=== PATIENT | female | born 1970 | race Asian ===

== ENCOUNTER 2024-01-05 13:09 | Outpatient (AMB) | payer OTHER, SELFPAY ==
--- NOTE | 2024-01-05 13:10 | MHC.PC.OV ---
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: No Allergies montelukast [From Singulair] Adverse Reaction (Mild, Verified 01/05/24 13:30) Drowsy Dust Allergy (Mild, Uncoded 01/05/24 13:30) Unknown Grass Allergy (Mild, Uncoded 01/05/24 13:30) Unknown latex Allergy (Mild, Uncoded 01/05/24 13:20) skin rash Mold Allergy (Mild, Uncoded 01/05/24 13:30) Unknown Medication List - Last Reconciled 01/05/24 by Henny Thorpe MD albuterol sulfate 90 mcg/actuation (Ventolin HFA) 2 puffs inhalation Q6H PRN ascorbic acid (vitamin C) mg PO calcium carbonate 500 mg PO BID cholecalciferol (vitamin D3) 25 mcg PO DAILY coenzyme Q10 (CoQ-10) 100 mg PO DAILY fluticasone propionate 44 mcg/actuation inhalation fluticasone propionate 44 mcg/actuation 2 puffs inhalation BID vitamin E mixed units PO Tobacco use date assessed: 01/05/24 Dental Screening Dental Screen Date: 01/05/24 Did you have a dental visit in the last 12 months?: Yes Did you have a dental problem in the last 6 months where you did not have access to dental care?: No Was dental information given to patient?: Patient has dentist HPI 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 Normal thyroid normal vitamin-D normal blood count with no anemia. 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 from [place] 2011 in [place] on flovent is going for a trip to [place] soon the visit mom. As for the asthma as she has a trip discussed about the bone density, the Pap smear done as well as her other medical problems. 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 1. Little interest or pleasure in doing things: not at all 2. Feeling down, depressed, or hopeless: not at all 3. Trouble falling or staying asleep, or sleeping too much: not at all 4. Feeling tired or having little energy: not at all 5. Poor appetite or overeating: not at all 6. Feeling bad about yourself - or that you are a failure or have let yourself or your family down: not at all 7. Trouble concentrating on things, such as reading the newspaper or watching television: not at all 8. Moving or speaking so slowly that other people could have noticed. Or the opposite - being so fidgety or restless that you have been moving around a lot more than usual: not at all 9. Thoughts that you would be better off or of hurting yourself in some way: not at all Total score: 0 Depression Screening Interpretation: Negative Depression Screening Done: Yes Source: Developed by Drs. Wesley Rico, Mily Edge, Temo Montenegro and colleagues, with an educational pa from [employer]. Thrive Questionnaire Date Thrive assessed: 01/05/24 I am a: Patient What is your living situation today?: I have a steady place to live Within the past 12 months, did the food you bought not last and you didn't have the money to get more?: Never true Within the past 12 months, did you worry whether your food would run out before you got money to buy more?: Never true Do you have trouble paying for medicines?: No Do you have trouble getting transportation to medical appointments?: No Do you have trouble paying your heating and electricity bill?: No Do you have trouble taking care of your child, family member or friend?: No Do you have trouble with day-to-day activities such as bathing, preparing meals, shopping, managing finances, etc.?: No Are you currently unemployed and looking for a job?: No Are you interested in more education?: No Please select the resources that you would like help with: None THRIVE Score: 0 AUDIT C Alcohol Use Questionnaire (AUDIT-C) 1. How often do you have a drink containing alcohol?: Monthly or less 2. How many drinks containing alcohol do you have on a typical day when you are drinking?: 1 or 2 3. How often do you have six or more drinks on one occasion?: Never Total Score: 1 JULIUS-7 AMB Questionnaire JULIUS-7 Date JULIUS - 7 assessed: 01/05/24 Feeling nervous, anxious, or on edge: 0 = Not at all Not being able to stop or control worryin = Not at all Worrying too much about different things: 0 = Not at all Trouble relaxin = Not at all Being so restless that it is hard to sit still: 0 = Not at all Becoming easily annoyed or irritable: 0 = Not at all Feeling afraid as if something awful might happen: 0 = Not at all Total JULIUS-7 score (0-4 normal; 5-9 mild; 10-14 moderate; 15-21 severe): 0 Source: Developed by Drs. Wesley Rico, Mliy Edge, Temo Montenegro and colleagues, with an educational pa from [employer]. Physical exam (Primary Care) Vital Signs: Last Vital Signs Pulse 67 01/05/24 13:12 BP 98/64 01/05/24 13:12 Pulse Ox 100 01/05/24 13:12 Oxygen Delivery Method Room Air 01/05/24 13:12 BMI result Body Mass Index 17.7 Tobacco/Smoking Status: Tobacco use Status Tobacco use date assessed 01/05/24 01/05/24 13:12 Patient Tobacco Use Status Former Tobacco user 01/05/24 13:26 PHQ-9: PHQ-9 Score PHQ-9: Total score 0 01/05/24 13:12 Depression Screening Interpretation: Negative Thrive Assessment: Date of Thrive Assessment Date Thrive assessed 01/05/24 01/05/24 13:12 Const General: alert; No acute distress Eyes Conjunctivae: conjunctivae normal Resp Auscultation: clear to auscultation bilaterally Cardio Rate: regular rate Rhythm: regular rhythm GI Inspection: Yes normal to inspection Extrem General: Yes normal to inspection and No edema Assessment and Plan Assessment & Plan (1) Steatohepatitis, non-alcoholic: Comment: biopsy 2019 Code(s): K75.81 - Nonalcoholic steatohepatitis (DELATORRE) Plan: Low-fat diet (2) Asthma: Code(s): J45.909 - Unspecified asthma, uncomplicated Plan: continue with inhalers (3) Left renal stone: Code(s): N20.0 - Calculus of kidney Plan: Increase oral fluids (4) Migraine: Code(s): G43.909 - Migraine, unspecified, not intractable, without status migrainosus Plan: Keep adequate hydration eat healthy and keep active and have adequate sleep (5) Uterine fibroid: Code(s): D25.9 - Leiomyoma of uterus, unspecified Plan: Stable (6) Osteoporosis: Code(s): M81.0 - Age-related osteoporosis without current pathological fracture Plan: up to date with bone density 2020 Coding Level of Care Code New Pt Level 4 (18708) Diagnoses Steatohepatitis, non-alcoholic K75.81 Asthma J45.909 Left renal stone N20.0 Migraine G43.909 Uterine fibroid D25.9 Osteoporosis M81.0
[2024-01-05 13:12] VITALS: BP 98/64; PULSE 67; O2SAT 100; BMI 17.7
== END 2024-01-05 14:09 | disposition home or self-care (01) ==
PROVIDERS: PCP Internal Medicine; Visit Provider Internal Medicine
DX: K75.81 Nonalcoholic steatohepatitis (NASH) (principal); J45.909 Unspecified asthma, uncomplicated; N20.0 Calculus of kidney; G43.909 Migraine, unspecified, not intractable, without status migrainosus; D25.9 Leiomyoma of uterus, unspecified; M81.0 Age-related osteoporosis without current pathological fracture
CPT/HCPCS: 99204

== ENCOUNTER 2024-05-24 13:50 | Outpatient (AMB) | payer OTHER, SELFPAY ==
[2024-05-24 13:54] VITALS: BP 90/58; PULSE 67; O2SAT 97; BMI 17.9
--- NOTE | 2024-05-24 13:54 | MHC.PC.OV ---
Vital Signs 05/24/24 13:54 Height 5 ft 3 in Weight 101 lb 0.2 oz BMI 17.9 BP 90/58 L Blood Pressure Location Lt brachial Position Sitting Pulse 67 Pulse Source Pulse Oximeter Pulse Oximetry (%) 97 Oxygen Delivery Method Room Air Intake Visit Reasons: ANNUAL Intake Note: Patient is here today for a physical. Medical Coding Specialist Required: No Allergies NSAIDS (Non-Steroidal Anti-Inflamma Adverse Reaction (Intermediate, Unverified 05/24/24 14:20) leg swelling montelukast [From Singulair] Adverse Reaction (Mild, Verified 05/24/24 13:55) Drowsy Dust Allergy (Mild, Uncoded 05/24/24 13:55) Unknown Grass Allergy (Mild, Uncoded 05/24/24 13:55) Unknown latex Allergy (Mild, Uncoded 05/24/24 13:55) skin rash Mold Allergy (Mild, Uncoded 05/24/24 13:55) Unknown Medication List - Last Reconciled 05/24/24 by Henny Thorpe MD albuterol sulfate 90 mcg/actuation (Ventolin HFA) 2 puffs inhalation Q6H PRN ascorbic acid (vitamin C) mg PO biotin 1 mg PO DAILY calcium carbonate 500 mg PO BID cholecalciferol (vitamin D3) 25 mcg PO DAILY coenzyme Q10 (CoQ-10) 100 mg PO DAILY fluticasone propionate 44 mcg/actuation inhalation fluticasone propionate 44 mcg/actuation 2 puffs inhalation BID vitamin E mixed units PO Tobacco use date assessed: 05/24/24 Dental Screening Dental Screen Date: 05/24/24 Did you have a dental visit in the last 12 months?: Yes Did you have a dental problem in the last 6 months where you did not have access to dental care?: No Was dental information given to patient?: Patient has dentist HPI ANNUAL HPI Details 53-year-old underweight female with a history of asthma hepatic steatosis left nephrolithiasis migraine uterine fibroid and osteoporosis was taking tylenol-, coming in for physical exam patient was last seen in December 2023. Cologuard is up-to-date, reminded about mammogram this year. And discussed about bone density. STEELE - vertiginous migraine- PFSH Medical History (Updated 05/24/24 @ 14:25 by Henny Thorpe MD) Colon cancer screening Surgical History (Updated 01/05/24 @ 13:47 by Henny Thorpe MD) Uterine polyp Family History (Updated 05/24/24 @ 14:18 by Henny Thorpe MD) Maternal Grandmother Heart problem Paternal Aunt Breast cancer Maternal Aunt Breast cancer Pancreatic cancer Maternal Uncle Colon cancer Sister Schizophrenia Drug abuse Social History (Updated 05/24/24 @ 14:19 by Henny Thorpe MD) Housing: House Alcohol intake: current Comment: 1 Q 2 months 1 glass Patient Tobacco Use Status: Former Tobacco user Years Smoked: teen years service: No Current occupational status: employed 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 1. Little interest or pleasure in doing things: not at all 2. Feeling down, depressed, or hopeless: not at all 3. Trouble falling or staying asleep, or sleeping too much: not at all 4. Feeling tired or having little energy: not at all 5. Poor appetite or overeating: not at all 6. Feeling bad about yourself - or that you are a failure or have let yourself or your family down: not at all 7. Trouble concentrating on things, such as reading the newspaper or watching television: not at all 8. Moving or speaking so slowly that other people could have noticed. Or the opposite - being so fidgety or restless that you have been moving around a lot more than usual: not at all 9. Thoughts that you would be better off or of hurting yourself in some way: not at all Total score: 0 Depression Screening Interpretation: Negative Depression Screening Done: Yes Source: Developed by Drs. Wesley Rico, Mily Edge, Temo Montenegro and colleagues, with an educational pa from [employer]. Thrive Questionnaire Date Thrive assessed: 01/05/24 I am a: Patient What is your living situation today?: I have a steady place to live Within the past 12 months, did the food you bought not last and you didn't have the money to get more?: Never true Within the past 12 months, did you worry whether your food would run out before you got money to buy more?: Never true Do you have trouble paying for medicines?: No Do you have trouble getting transportation to medical appointments?: No Do you have trouble paying your heating and electricity bill?: No Do you have trouble taking care of your child, family member or friend?: No Do you have trouble with day-to-day activities such as bathing, preparing meals, shopping, managing finances, etc.?: No Are you currently unemployed and looking for a job?: No Are you interested in more education?: No Please select the resources that you would like help with: None Currently or been in a relationship where the following occur: No concerns reported THRIVE Score: 0 AUDIT C Alcohol Use Questionnaire (AUDIT-C) 1. How often do you have a drink containing alcohol?: Monthly or less 2. How many drinks containing alcohol do you have on a typical day when you are drinking?: 1 or 2 3. How often do you have six or more drinks on one occasion?: Never Total Score: 1 JULIUS-7 AMB Questionnaire JULIUS-7 Date JULIUS - 7 assessed: 05/24/24 Feeling nervous, anxious, or on edge: 0 = Not at all Not being able to stop or control worryin = Not at all Worrying too much about different things: 0 = Not at all Trouble relaxin = Not at all Being so restless that it is hard to sit still: 0 = Not at all Becoming easily annoyed or irritable: 0 = Not at all Feeling afraid as if something awful might happen: 0 = Not at all Total JULIUS-7 score (0-4 normal; 5-9 mild; 10-14 moderate; 15-21 severe): 0 Source: Developed by Drs. Wesley Rico, Mily Edge, Temo Montenegor and colleagues, with an educational pa from [employer]. Review of Systems Const Denies poor appetite and Denies weakness Eyes Denies no additional complaints ENT Reports Normal hearing present, Denies dizziness, Denies nasal congestion, Denies tinnitus and Denies sore throat Card Denies chest pain, Denies syncope, Denies rapid heart rate and Denies dyspnea Resp Denies cough and Denies dyspnea GI Denies change in stool character, Reports constipation, Denies diarrhea, Denies nausea and Denies vomiting Denies urinary frequency, Denies difficulty voiding and Denies dysuria Neuro Reports Normal hearing present, Denies confusion, Denies dizziness, Denies syncope and Denies weakness Psych Denies confusion Physical exam (Primary Care) Vital Signs: Last Vital Signs Pulse 67 05/24/24 13:54 BP 90/58 L 05/24/24 13:54 Pulse Ox 97 05/24/24 13:54 Oxygen Delivery Method Room Air 05/24/24 13:54 BMI result Body Mass Index 17.9 Tobacco/Smoking Status: Tobacco use Status Tobacco use date assessed 05/24/24 05/24/24 14:03 Patient Tobacco Use Status Former Tobacco user 05/24/24 14:03 PHQ-9: PHQ-9 Score PHQ-9: Total score 0 05/24/24 14:03 Depression Screening Interpretation: Negative Thrive Assessment: Date of Thrive Assessment Date Thrive assessed 01/05/24 05/24/24 14:03 Currently or been in a relationship where the following occur: No concerns reported Const General: No confusion Orientation/consciousness: No confusion HENMT Head: Yes normocephalic Ears: external ears normal and TM's normal bilaterally Face and sinus: Yes normal facial exam Mouth: moist mucous membranes Throat: Yes tonsils normal Eyes Conjunctivae: conjunctivae normal Pupils: Equal, round and reactive pupils present and Pupil accommodation reflex normal Direct Ophthalmoscopy: normal light reflex Neck Neck: No lymphadenopathy Thyroid: Thyroid normal Chest Chest palpation & inspection: normal inspection of the chest Resp Effort & Inspection: normal respiratory effort and no audible wheezes Auscultation: clear to auscultation bilaterally, no crackles, no wheezes and lung sounds not diminished Cardio Rate: regular rate Rhythm: regular rhythm Peripheral pulses: radial pulses present and dorsalis pedis present GI Palpation (GI): no masses Auscultation: normal bowel sounds and normoactive bowel sounds Rectal Exam - Female: deferred Skin General skin exam: no rashes or lesions noted Rashes: no rashes Neuro General: No confusion Cranial nerves: Yes Equal, round and reactive pupils present and Yes Normal hearing present Cognition (Neuro): normal cognition Gait exam (Neuro): Normal gait present Motor exam (neuro): 5/5 motor strength present throughout Deep tendon reflexes (DTR's): Right brachioradialis reflex intensity grade: 2+, Left brachioradialis reflex intensity grade: 2+, Right patellar reflex intensity grade: 2+ and Left patellar reflex intensity grade: 2+ Extrem General: No edema Assessment and Plan Assessment & Plan (1) Chalazion: Code(s): H00.19 - Chalazion unspecified eye, unspecified eyelid (2) Annual physical exam: Code(s): Z00.00 - Encounter for general adult medical examination without abnormal findings (3) Steatohepatitis, non-alcoholic: Comment: biopsy 2019 Code(s): K75.81 - Nonalcoholic steatohepatitis (DELATORRE) Plan: Patient is advised to eat healthy and keep well hydrated. Patient also advised to follow up with Gastroenterology (4) Osteoporosis: Code(s): M81.0 - Age-related osteoporosis without current pathological fracture Plan: Patient was recommended to have a follow-up bone density (5) Left renal stone: Code(s): N20.0 - Calculus of kidney Plan: Keep well hydrated (6) Asthma: Code(s): J45.909 - Unspecified asthma, uncomplicated Plan: Continue with albuterol inhaler and Flovent. Reminded about rinsing mouth after using the inhaler. (7) Migraine: Code(s): G43.909 - Migraine, unspecified, not intractable, without status migrainosus Plan: Patient is advised to eat healthy, keep well hydrated, keep active and have adequate sleep. (8) Chalazion left eye, unspecified eyelid: Comment: Dr. Holloway Code(s): H00.16 - Chalazion left eye, unspecified eyelid (9) Constipation: Code(s): K59.00 - Constipation, unspecified Orders: Orders Complete Blood Count Auto Diff Today M81.0 - Age-related osteoporosis without current pathological fracture Free T4 (Free Thyroxine) Today M81.0 - Age-related osteoporosis without current pathological fracture Thyroid Stimulating Hormone Today M81.0 - Age-related osteoporosis without current pathological fracture Lipid Panel Today E78.00 - Pure hypercholesterolemia, unspecified, M81.0 - Age-related osteoporosis without current pathological fracture Vitamin B12 and Folate Today M81.0 - Age-related osteoporosis without current pathological fracture Vitamin D 25-OH Total Today M81.0 - Age-related osteoporosis without current pathological fracture Comprehensive Met. Panel Today M81.0 - Age-related osteoporosis without current pathological fracture Ferritin Today M81.0 - Age-related osteoporosis without current pathological fracture Medications: New rutin 500 mg PO DAILY 30 tabs 0RF K59.00 - Constipation, unspecified albuterol sulfate 90 mcg/actuation (Ventolin HFA) 2 puffs inhalation Q6H PRN 8.5 grams 0RF shortness of breath or wheezing M81.0 - Age-related osteoporosis without current pathological fracture Coding Level of Care Code Est Pt Prev Care 40-64y(42875) Diagnoses Chalazion H00.19 Annual physical exam Z00.00 Steatohepatitis, non-alcoholic K75.81 Osteoporosis M81.0 Left renal stone N20.0 Asthma J45.909 Migraine G43.909 Chalazion left eye, unspecified eyelid H00.16 Constipation K59.00
== END 2024-05-24 14:50 | disposition home or self-care (01) ==
PROVIDERS: PCP Internal Medicine; Visit Provider Internal Medicine
DX: H00.19 Chalazion unspecified eye, unspecified eyelid (principal); Z00.00 Encounter for general adult medical examination without abnormal findings; K75.81 Nonalcoholic steatohepatitis (NASH); M81.0 Age-related osteoporosis without current pathological fracture; N20.0 Calculus of kidney; J45.909 Unspecified asthma, uncomplicated; G43.909 Migraine, unspecified, not intractable, without status migrainosus; H00.16 Chalazion left eye, unspecified eyelid; K59.00 Constipation, unspecified
CPT/HCPCS: 99396

== ENCOUNTER 2025-03-21 09:49 | Outpatient (AMB) | payer OTHER, SELFPAY ==
--- NOTE | 2025-03-21 09:49 | A.OFFPC_ITS ---
Intake Visit Reasons: hepatic [phone] Allergies NSAIDS (Non-Steroidal Anti-Inflamma Adverse Reaction (Intermediate, Verified 03/21/25 09:50) leg swelling montelukast [From Singulair] Adverse Reaction (Mild, Verified 03/21/25 09:50) Drowsy Dust Allergy (Mild, Uncoded 03/21/25 09:50) Unknown Grass Allergy (Mild, Uncoded 03/21/25 09:50) Unknown latex Allergy (Mild, Uncoded 03/21/25 09:50) skin rash Mold Allergy (Mild, Uncoded 03/21/25 09:50) Unknown Tobacco use date assessed: 05/24/24 Dental Screening Dental Screen Date: 03/21/25 Did you have a dental visit in the last 12 months?: Yes Did you have a dental problem in the last 6 months where you did not have access to dental care?: No Was dental information given to patient?: Patient has dentist [facility] Medical History (Updated 03/21/25 @ 10:29 by Henny Thorpe MD) Colon cancer screening Surgical History (Updated 01/05/24 @ 13:47 by Henny Thorpe MD) Uterine polyp Family History (Updated 05/24/24 @ 14:18 by Henny Thorpe MD) Maternal Grandmother Heart problem Paternal Aunt Breast cancer Maternal Aunt Breast cancer Pancreatic cancer Maternal Uncle Colon cancer Sister Schizophrenia Drug abuse Social History (Updated 05/24/24 @ 14:19 by Henny Thorpe MD) Housing: House Alcohol intake: current Comment: 1 Q 2 months 1 glass Patient Tobacco Use Status: Former Tobacco user Tobacco use type: Cigarette Years Smoked: teen years e-Cigarette/Vaping Use: Never Used Second Hand Smoke Exposure: No service: No Current occupational status: employed 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 1. Little interest or pleasure in doing things: not at all 2. Feeling down, depressed, or hopeless: not at all 3. Trouble falling or staying asleep, or sleeping too much: not at all 4. Feeling tired or having little energy: not at all 5. Poor appetite or overeating: not at all 6. Feeling bad about yourself - or that you are a failure or have let yourself or your family down: not at all 7. Trouble concentrating on things, such as reading the newspaper or watching television: not at all 8. Moving or speaking so slowly that other people could have noticed. Or the opposite - being so fidgety or restless that you have been moving around a lot more than usual: not at all 9. Thoughts that you would be better off or of hurting yourself in some way: not at all Total score: 0 Depression Screening Interpretation: Negative Depression Screening Done: Yes Source: Developed by Drs. Wesley Rico, Mily Edge, Temo Montenegro and colleagues, with an educational pa from [employer]. Thrive Questionnaire Date Thrive assessed: 03/21/25 I am a: Patient What is your living situation today?: I have a steady place to live Within the past 12 months, did the food you bought not last and you didn't have the money to get more?: Never true Within the past 12 months, did you worry whether your food would run out before you got money to buy more?: Never true Do you have trouble paying for medicines?: No Do you have trouble getting transportation to medical appointments?: No Do you have trouble paying your heating and electricity bill?: No Do you have trouble taking care of your child, family member or friend?: No Do you have trouble with day-to-day activities such as bathing, preparing meals, shopping, managing finances, etc.?: No Are you currently unemployed and looking for a job?: No Are you interested in more education?: No Please select the resources that you would like help with: None Currently or been in a relationship where the following occur: No concerns reported THRIVE Score: 0 AUDIT C Alcohol Use Questionnaire (AUDIT-C) 1. How often do you have a drink containing alcohol?: Monthly or less 2. How many drinks containing alcohol do you have on a typical day when you are drinking?: 1 or 2 3. How often do you have six or more drinks on one occasion?: Never Total Score: 1 JULIUS-7 AMB Questionnaire JULIUS-7 Date JULIUS - 7 assessed: 03/21/25 Feeling nervous, anxious, or on edge: 1 = Several days (Mom just admitted into hospital yesterday making her a little anxious. Overall is okay. ) Not being able to stop or control worryin = Not at all Worrying too much about different things: 0 = Not at all Trouble relaxin = Not at all Being so restless that it is hard to sit still: 0 = Not at all Becoming easily annoyed or irritable: 0 = Not at all Feeling afraid as if something awful might happen: 0 = Not at all Total JULIUS-7 score (0-4 normal; 5-9 mild; 10-14 moderate; 15-21 severe): 1 Source: Developed by Drs. Wesley Rico, Mily Edge, Temo Montenegro and colleagues, with an educational pa from [employer]. Physical exam (Primary Care) Tobacco/Smoking Status: Tobacco use Status Tobacco use date assessed 05/24/24 03/21/25 09:51 Patient Tobacco Use Status Former Tobacco user 03/21/25 09:51 Tobacco use type Cigarette 03/21/25 09:51 e-Cigarette/Vaping Use Never Used 03/21/25 09:51 PHQ-9: PHQ-9 Score PHQ-9: Total score 0 03/21/25 09:51 Depression Screening Interpretation: Negative Thrive Assessment: Date of Thrive Assessment Date Thrive assessed 03/21/25 03/21/25 09:51 Currently or been in a relationship where the following occur: No concerns reported Telehealth Telehealth Telehealth Platform: Other (please specify) (Iphone) Location of provider rendering services: practice address Location of patient: address on file Patient Identification confirmed using: Name, : Yes Telehealth method: video Patient verbally consented to treatment: Yes Patient verbally consented to billing insurance company: Yes Patient informed of any privacy concerns related to visit: Yes Minutes spent on Phone/Video with Pt.: 25 Coding Level of Care Code Tele Est Pt Level 4 (29097) Diagnoses TSH elevation R79.89 LFT elevation R79.89 Asthma J45.909 Steatohepatitis, non-alcoholic K75.81 Constipation K59.00 Generalized anxiety disorder F41.1 Assessment & Plan Assessment & Plan (1) TSH elevation: Code(s): R79.89 - Other specified abnormal findings of blood chemistry Category: Medical Plan: Blood Work done normal (2) LFT elevation: Code(s): R79.89 - Other specified abnormal findings of blood chemistry Category: Medical Plan: Patient is advised to get an ultrasound of the liver with hepatitis profile (3) Asthma: Code(s): J45.909 - Unspecified asthma, uncomplicated Category: Medical Plan: Continuing with albuterol inhaler as needed (4) Steatohepatitis, non-alcoholic: Comment: biopsy 2019 Code(s): K75.81 - Nonalcoholic steatohepatitis ([place]ATORRE) Category: Medical Plan: Low-fat diet and exercise (5) Constipation: Code(s): K59.00 - Constipation, unspecified Category: Medical Plan: Three rules for constipation 1. Diet need to have a high fiber diet less of meat 2. Increase oral fluids 3. Exercise (6) Generalized anxiety disorder: Code(s): F41.1 - Generalized anxiety disorder Category: Medical Plan: Referral done Plan History of Present Illness The patient is a 54-year-old female presenting for a follow-up visit to address multiple chronic health conditions, including nonalcoholic steatohepatitis, irritable bowel syndrome, left nephrolithiasis, asthma, and osteoporosis. She reported recently elevated liver enzymes and a mildly elevated TSH as per blood tests conducted in May 2024. Her lipid profile indicated hyperlipidemia. Her vitamin B12 and folic acid levels were abnormally high, leading to the cessation of related supplements. The patient experiences occasional constipation, exacerbated by dietary factors and reduced physical activity. She expressed concerns regarding potential shingles susceptibility and is interested in verification of past varicella exposure and measles immunization status. A discussion regarding the pursuit of culturally competent psychotherapy was initiated, given her stressful family dynamics. Review of Systems - Gastrointestinal: Reports constipation; denies blood in stool. - Respiratory: Denies recent asthma exacerbations; occasional use of albuterol noted. - Musculoskeletal: Reports osteoporosis; denies fractures. - Endocrine: Denies new symptoms of thyroid dysfunction. - Psychological: Reports stress related to family issues. Plan Management for nonalcoholic steatohepatitis will include a liver ultrasound and hepatitis profile. The patient should continue lifestyle modifications for hyperlipidemia and monitor TSH levels. Recommendations were provided for dietary management and supplementation to address constipation. A varicella antibody test will be pursued, and a referral for culturally competent therapy will be coordinated. A follow-up visit is scheduled in three months. Patient was informed and verbally consented to the use of an ambient scribe for clinic note documentation during this visit. Discussion Notes I explained to the patient the importance of monitoring elevated liver enzymes and the plan to obtain an ultrasound and hepatitis profile. We discussed the rationale behind stopping vitamin B12 and folic acid supplements due to elevated levels, and the choice to monitor TSH given the mild elevation. I advised the patient on managing constipation through dietary means and potential use of psyllium, which she acknowledged. We discussed the vaccine guideline implications for herpes zoster, determining the need for a varicella antibody test. Finally, we explored therapy options, emphasizing the importance of cultural sensitivity in mental health support, and I committed to easing the referral process for her preferred therapy framework. Patient Instructions - Follow a low-fat diet and engage in regular exercise. - Discontinue Vitamin B12 and folic acid supplements. - Arrange for a liver ultrasound and hepatitis profile. - Increase water intake and consider psyllium supplements for constipation. - Await mail with updated blood work request. - Monitor stress levels and contact for a therapist referral if desired. - Follow up in three months. Orders: Orders Hepatitis B,C Profile Today R79.89 - Other specified abnormal findings of blood chemistry Rubella IgG Antibody Today Z02.0 - Encounter [facility] Varicella IgG Antibody Today Z02.0 - Encounter for examination for admission to [facility] Mumps Virus IgG Antibody Today Z02.0 - Encounter for examination for admission to [facility] Rubeola IgG (Measles) Today Z02.0 - Encounter for examination for admission to [facility] Referrals Psychiatry Referral F41.1 - Generalized anxiety disorder
== END 2025-03-21 14:36 | disposition home or self-care (01) ==
LOC: HO.HMCH 09:49
PROVIDERS: PCP Internal Medicine; Visit Provider Internal Medicine
DX: R79.89 Other specified abnormal findings of blood chemistry (principal); J45.909 Unspecified asthma, uncomplicated; K75.81 Nonalcoholic steatohepatitis (NASH); K59.00 Constipation, unspecified; F41.1 Generalized anxiety disorder

== ENCOUNTER → 2025-03-21 09:49 | Outpatient (BNVA) | payer OTHER, SELFPAY | PROVIDERS: PCP Internal Medicine; Visit Provider Internal Medicine | DX: Z13.89 Encounter for screening for other disorder (principal) ==

== ENCOUNTER 2025-05-29 13:12 | Outpatient (AMB) | payer OTHER, SELFPAY ==
[2025-05-29 13:23] VITALS: BP 100/64; PULSE 69; RESP 18; TEMP 36.3; O2SAT 98; BMI 17.8
--- NOTE | 2025-05-29 13:23 | MHC.PC.OV ---
Vital Signs 05/29/25 13:23 Height 5 ft 3 in Weight 100 lb 8 oz BMI 17.8 BP 100/64 Blood Pressure Location Lt brachial Position Sitting Respiration 18 Pulse 69 Pulse Source Pulse Oximeter Temp 97.3 F Temp Source Temporal Artery Scan Pulse Oximetry (%) 98 Oxygen Delivery Method Room Air Intake Visit Reasons: Annual exam Accompanied by: Spouse Allergies NSAIDS (Non-Steroidal Anti-Inflamma Adverse Reaction (Intermediate, Verified 05/29/25 13:26) leg swelling montelukast (From Singulair) Adverse Reaction (Mild, Verified 05/29/25 13:26) Drowsy Dust Allergy (Mild, Uncoded 05/29/25 13:26) Unknown Grass Allergy (Mild, Uncoded 05/29/25 13:26) Unknown latex Allergy (Mild, Uncoded 05/29/25 13:26) skin rash Mold Allergy (Mild, Uncoded 05/29/25 13:26) Unknown Medication List - Last Reconciled 05/29/25 by Henny Thorpe MD albuterol sulfate 90 mcg/actuation (Ventolin HFA) 2 puffs inhalation Q6H PRN ascorbic acid (vitamin C) mg PO budesonide 90 mcg/actuation (Pulmicort Flexhaler) 1 inh inhalation .QD calcium carbonate 500 mg PO BID cholecalciferol (vitamin D3) 25 mcg PO DAILY coenzyme Q10 (CoQ-10) 100 mg PO DAILY multivitamin 1 tab PO DAILY rutin 500 mg PO DAILY PRN vitamin E mixed units PO .3x a week Tobacco use date assessed: 05/29/25 Dental Screening Dental Screen Date: 05/29/25 Did you have a dental visit in the last 12 months?: Yes Did you have a dental problem in the last 6 months where you did not have access to dental care?: No Was dental information given to patient?: Patient has dentist HPI Annual exam HPI Details vertigo, occ nausea, MAy migraine and had a vomiting. leg crmps PFSH Medical History Colon cancer screening Surgical History Uterine polyp Family History (Updated 05/29/25 @ 13:54 by Henny Thorpe MD) Maternal Grandmother Heart problem Paternal Aunt Breast cancer Maternal Aunt Breast cancer Pancreatic cancer Maternal Uncle Colon cancer Sister Schizophrenia Drug abuse Other Heart attack Social History Housing: House Alcohol intake: current Comment: 1 Q 2 months 1 glass Patient Tobacco Use Status: Former Tobacco user Tobacco use type: Cigarette Years Smoked: teen years e-Cigarette/Vaping Use: Never Used Second Hand Smoke Exposure: No service: No Current occupational status: employed 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 1. Little interest or pleasure in doing things: not at all 2. Feeling down, depressed, or hopeless: not at all 3. Trouble falling or staying asleep, or sleeping too much: not at all 4. Feeling tired or having little energy: several days 5. Poor appetite or overeating: not at all 6. Feeling bad about yourself - or that you are a failure or have let yourself or your family down: not at all 7. Trouble concentrating on things, such as reading the newspaper or watching television: not at all 8. Moving or speaking so slowly that other people could have noticed. Or the opposite - being so fidgety or restless that you have been moving around a lot more than usual: not at all 9. Thoughts that you would be better off or of hurting yourself in some way: not at all Total score: 1 Source: Developed by Drs. Wesley Rico, Mily Edge, Temo Montenegro and colleagues, with an educational pa from [employer]. Thrive Questionnaire Date Thrive assessed: 03/21/25 I am a: Patient What is your living situation today?: I have a steady place to live Within the past 12 months, did the food you bought not last and you didn't have the money to get more?: Never true Within the past 12 months, did you worry whether your food would run out before you got money to buy more?: Never true Do you have trouble paying for medicines?: I choose not to answer this question Do you have trouble getting transportation to medical appointments?: I choose not to answer this question Do you have trouble paying your heating and electricity bill?: No Do you have trouble taking care of your child, family member or friend?: No Do you have trouble with day-to-day activities such as bathing, preparing meals, shopping, managing finances, etc.?: No Are you currently unemployed and looking for a job?: I choose not to answer this question Are you interested in more education?: No Please select the resources that you would like help with: None Currently or been in a relationship where the following occur: No concerns reported THRIVE Score: 0 AUDIT C Alcohol Use Questionnaire (AUDIT-C) 1. How often do you have a drink containing alcohol?: Monthly or less 2. How many drinks containing alcohol do you have on a typical day when you are drinking?: 1 or 2 3. How often do you have six or more drinks on one occasion?: Never Total Score: 1 JULIUS-7 AMB Questionnaire JULIUS-7 Date JULIUS - 7 assessed: 03/21/25 Feeling nervous, anxious, or on edge: 1 = Several days Not being able to stop or control worryin = Not at all Worrying too much about different things: 0 = Not at all Trouble relaxin = Not at all Being so restless that it is hard to sit still: 0 = Not at all Becoming easily annoyed or irritable: 0 = Not at all Feeling afraid as if something awful might happen: 0 = Not at all Total JULIUS-7 score (0-4 normal; 5-9 mild; 10-14 moderate; 15-21 severe): 1 Source: Developed by Drs. Wesley Rico, Mily Edge, Temo Montenegro and colleagues, with an educational pa from [employer]. Review of Systems Const Denies poor appetite and Denies weakness Eyes Denies no additional complaints ENT Reports Normal hearing present, Denies dizziness, Denies nasal congestion, Denies tinnitus and Denies sore throat Card Denies chest pain, Denies syncope, Denies rapid heart rate and Denies dyspnea Resp Denies cough and Denies dyspnea GI Denies change in stool character, Reports constipation, Denies diarrhea, Denies nausea and Denies vomiting Denies urinary frequency, Denies difficulty voiding and Denies dysuria Neuro Reports Normal hearing present, Denies confusion, Denies dizziness, Denies syncope and Denies weakness Psych Denies confusion Physical exam (Primary Care) Vital Signs: Last Vital Signs Temp 97.3 F 05/29/25 13:23 Pulse 69 05/29/25 13:23 Resp 18 05/29/25 13:23 BP 100/64 05/29/25 13:23 Pulse Ox 98 05/29/25 13:23 Oxygen Delivery Method Room Air 05/29/25 13:23 BMI result Body Mass Index 17.8 Tobacco/Smoking Status: Tobacco use Status Tobacco use date assessed 05/29/25 05/29/25 13:28 Patient Tobacco Use Status Former Tobacco user 05/29/25 13:28 Tobacco use type Cigarette 05/29/25 13:28 e-Cigarette/Vaping Use Never Used 05/29/25 13:28 PHQ-9: PHQ-9 Score PHQ-9: Total score 1 05/29/25 13:37 Thrive Assessment: Date of Thrive Assessment Date Thrive assessed 03/21/25 05/29/25 13:28 Currently or been in a relationship where the following occur: No concerns reported Const General: No confusion Orientation/consciousness: No confusion HENMT Head: Yes normocephalic Ears: external ears normal and TM's normal bilaterally Face and sinus: Yes normal facial exam Mouth: moist mucous membranes Throat: Yes tonsils normal Eyes Conjunctivae: conjunctivae normal Pupils: Equal, round and reactive pupils present and Pupil accommodation reflex normal Direct Ophthalmoscopy: normal light reflex Neck Neck: No lymphadenopathy Thyroid: Thyroid normal Chest Chest palpation & inspection: normal inspection of the chest Resp Effort & Inspection: normal respiratory effort and no audible wheezes Auscultation: clear to auscultation bilaterally, no crackles, no wheezes and lung sounds not diminished Cardio Rate: regular rate Rhythm: regular rhythm Peripheral pulses: radial pulses present and dorsalis pedis present GI Palpation (GI): no masses Auscultation: normal bowel sounds and normoactive bowel sounds Rectal Exam - Female: deferred Skin General skin exam: no rashes or lesions noted Rashes: no rashes Neuro General: No confusion Cranial nerves: Yes Equal, round and reactive pupils present and Yes Normal hearing present Cognition (Neuro): normal cognition Gait exam (Neuro): Normal gait present Motor exam (neuro): 5/5 motor strength present throughout Deep tendon reflexes (DTR's): Right brachioradialis reflex intensity grade: 2+, Left brachioradialis reflex intensity grade: 2+, Right patellar reflex intensity grade: 2+ and Left patellar reflex intensity grade: 2+ Extrem General: No edema Coding Level of Care Code Est Pt Prev Care 40-64y(72316) Diagnoses Annual physical exam Z00. Asthma J45.909 Breast cancer screening by mammogram Z. Constipation K59.00 Steatohepatitis, non-alcoholic K75.81 Osteoporosis M81.0 TSH elevation R79.89 Generalized anxiety disorder F41.1 Assessment & Plan Assessment & Plan (1) Annual physical exam: Code(s): Z00.00 - Encounter for general adult medical examination without abnormal findings Category: Medical Plan: Patient is advised to eat healthy, keep well hydrated, keep active and have adequate sleep. (2) Asthma: Code(s): J45.909 - Unspecified asthma, uncomplicated Category: Medical Plan: Patient on albuterol inhaler as well as Pulmicort. Advised to rinse mouth after using (3) Breast cancer screening by mammogram: Code(s): Z. - Encounter for screening mammogram for malignant neoplasm of breast Category: Medical Plan: Patient is reminded about mammogram (4) Constipation: Code(s): K59.00 - Constipation, unspecified Category: Medical Plan: Three rules for constipation 1. Diet need to have a high fiber diet less of meat 2. Increase oral fluids 3. Exercise (5) Steatohepatitis, non-alcoholic: Comment: biopsy 2019 Code(s): K75.81 - Nonalcoholic steatohepatitis (DELATORRE) Category: Medical Plan: Low-fat diet and exercise (6) Osteoporosis: Code(s): M81.0 - Age-related osteoporosis without current pathological fracture Category: Medical Plan: Reminded about bone density (7) TSH elevation: Code(s): R79.89 - Other specified abnormal findings of blood chemistry Category: Medical Plan: Advised to retest thyroid (8) Generalized anxiety disorder: Code(s): F41.1 - Generalized anxiety disorder Category: Medical Plan: Stable Plan History of Present Illness The patient is a 54-year-old female presenting for a routine physical examination and management of chronic conditions. Her medical history is notable for hepatitis, irritable bowel syndrome, asthma, nephrolithiasis, migraines, osteoporosis, and anxiety disorder. She also manages hyperlipidemia, with recent lab work indicating elevated cholesterol levels. Additionally, a thyroid function test reflected mild elevations suggestive of borderline hypothyroidism with a TSH of 4.84. The patient experiences asthma exacerbations triggered by dust and allergens, managed with albuterol and pulmicort inhalers. Due to insurance changes affecting Flovent, she is transitioning to pulmicort as a substitute inhaler. She faces migraines approximately monthly, triggered by dehydration and diet, managed through lifestyle modifications. She suffers from chronic constipation, managed with diet and routine usage as needed. The patient has frequent muscle cramps in her feet, possibly related to fluid or electrolyte imbalances. Her sleep is occasionally disrupted by nocturia. She denies regular alcohol consumption, tobacco, or recreational drug use. Family history includes breast cancer and cardiovascular conditions. Health Maintenance - Colon cancer screening with stool test ([employer]) in 2022: Negative - Mammogram in October 2023: Follow-up advised - Bone density assessment in 2023 - Advised to retest thyroid function - Consideration of shingles vaccination Social History - Rare alcohol consumption, typically during vacations - Denies smoking and recreational drug use - Reports a well-managed asthma condition, exacerbated by environmental factors - Limited exercise due to previous knee injury but walks when possible - Migraines managed by dietary control and hydration awareness Review of Systems - Neurological: Reports migraines with dizziness and vertigo; Denies persistent headaches - Musculoskeletal: Reports muscle cramps in the feet - Respiratory: Reports asthma managed with medication - Gastrointestinal: Reports constipation managed with diet and routine use - Endocrine: Denies symptoms consistent with significant hypothyroidism but reports mild hair thinning - General: Denies significant alcohol use, denies tobacco and recreational drug use Physical Exam General: Cooperative, healthy appearing, comfortable, no acute distress and well developed Orientation: Patient oriented x3 Limitations: No limitations Head: Normal to inspection Ears: Hearing grossly normal bilaterally Nose: Normal external nose present Face and sinus: Normal facial exam Eyes: Appearance normal, both eyes and all related structures Neck: Normal visual inspection and Yes full ROM Respiratory: Normal respiratory effort and able to speak in complete sentences. Clear to auscultation bilaterally Cardiovascular: Regular rate and rhythm. Normal S1 and S2 GI: Normal to inspection. Soft to palpation and nontender Skin: No rashes or lesions noted Neuro: Patient oriented x3 Extremities: Normal to inspection Results - Labs: Positive antibodies for mumps, negative for varicella, elevated liver enzymes at 42 and 61 - Labs: Total cholesterol 259 mg/dL, HDL 111 mg/dL, LDL 137 mg/dL, triglycerides 56 mg/dL - Labs: Mildly elevated thyroid function test (TSH 4.84) Plan The patient should continue using albuterol and pulmicort inhalers as asthma management. I will monitor her switch from Flovent due to insurance-related coverage changes. Advised proper rinsing of the mouth post-inhaler use to avoid oral thrush. Recommended lifestyle changes, including regular exercise and a low-fat diet, to manage her hyperlipidemia. A follow-up lab test for thyroid function and liver enzyme monitoring was advised. Given her ongoing dizziness and migraine history, lifestyle modifications were emphasized, with careful hydration and dietary management. Continued follow-up for preventative screenings such as mammography and bone density assessment was planned. Recommended the shingles vaccine due to a low varicella immunity, carried out in consultation with her. Arranged to follow-up on her therapy consultations for a therapist who meets her cultural preferences. Patient was informed and verbally consented to the use of an ambient scribe for clinic note documentation during this visit. Discussion Notes During this visit, I reviewed the patient's chronic conditions and management plans, highlighting the need for continuity in asthma treatment while transitioning medications due to insurance changes. We discussed the implications of her cholesterol and liver enzyme levels, stressing lifestyle modifications and monitoring. Counseling was provided on breathing techniques for asthma and oral hygiene to prevent oral thrush due to steroid inhaler use. Discussions covered potential triggers for her migraines, with strategies to mitigate such as improved hydration and dietary changes, alongside potential therapy for emotional support. I elaborated on the benefits and possible side effects of shingles vaccination given her immunity status. Finalized the plan with appropriate follow-ups for mammography and bone density, emphasizing adherence to preventative care and upcoming testing for thyroid re-evaluation. Patient Instructions - Continue using albuterol and pulmicort inhalers as directed; rinse mouth after use - Follow up on mammogram and bone density assessments - Retest thyroid function as advised - Maintain a low-fat diet and regular exercise - Stay hydrated and monitor dietary triggers for migraines - Schedule for shingles vaccine at the pharmacy if agreed upon - Inform us if experiencing worsening symptoms or other health concerns Orders: Orders Free T4 (Free Thyroxine) 3 Months R79.89 - Other specified abnormal findings of blood chemistry Thyroid Stimulating Hormone 3 Months R79.89 - Other specified abnormal findings of blood chemistry Medications: New budesonide 90 mcg/actuation (Pulmicort Flexhaler) 1 inh inhalation .QD 1 ea 0RF R79.89 - Other specified abnormal findings of blood chemistry Discontinued budesonide 180 mcg/actuation (Pulmicort Flexhaler) Discontinued Reason: Doctor's Order 1 inh inhalation BID 1 ea 11RF J45.909 - Unspecified asthma, uncomplicated
--- OUTSIDE RECORDS SUMMARY | 2025-05-29 13:44 | XMS_ITS | Encounter Summary ---
Author Organization [facility] Address [address] [place] [id number] Phone Care Team Providers Care Television Producer Name Role Phone Josse Lorenzo MD Primary Care Provider [phone] Sarahy Torres RESEARCH COMPLIANCE SPECIALIST Primary Care Provider Eunice Caballero RESEARCH COMPLIANCE SPECIALIST Primary Care Provide r Mayelin Thompson RESEARCH COMPLIANCE SPECIALIST Unavailable [phone] Encounter Details Date Type Department Care Team (Latest Contact Info) Description 03/07/2021 Transcribe Orders Virtual Department [address] [place] [id number] Minesh Nguyễn MD [address] [place] [id number] [email or web address] Encounter for laboratory testing for COVID-19 virus (Primary Dx) Social History Tobacco Use Types Packs/Day Years Used Date Smoking Tobacco: Former Cigarettes Q uit: 1990 Smokeless Tobacco: Never Alcohol Use Standard Drinks/Week Comments Yes 0 (1 standard drink = 0.6 oz pur e alcohol) ocasionally Comments No Sex and Gender Information Value Date Recorded Sex Assigned at Not on file Legal Sex Female 9:37 PM EDT Gender Identity Not on file Sexual Orientation Not on file documented as of this encounter Plan of Treatment Not on file documented as of this encounter Visit Diagnoses Diagnosis Encounter for laboratory testing for COVID-19 virus- Primary documented in this encounter Care Teams Television Producer Relationship Specialty Start Date End Date Josse Lorenzo MD [address] [place] [address] PCP - General 08/16/17 08/05/22 Sarahy Torres NP [address] [place] [address] PCP - General Family Medicine 08/06/22 08/07/23 Eunice Caballero NP [address] [place] [id number] [email or web address] PCP - General Nurse Practitioner 08/08/23 Mayelin Thompson NP [address] [place] [id number] Nurse Practitioner 08/09/23 documented as of this encounter Additional Source Comments The information contained in this document represents components of the legal health record. It is not the complete legal health record.[facility]
== END 2025-05-29 14:30 | disposition home or self-care (01) ==
LOC: HO.HMCH 13:13
PROVIDERS: PCP Internal Medicine; Visit Provider Internal Medicine
DX: Z00.00 Encounter for general adult medical examination without abnormal findings (principal); J45.909 Unspecified asthma, uncomplicated; Z12.31 Encounter for screening mammogram for malignant neoplasm of breast; K59.00 Constipation, unspecified; K75.81 Nonalcoholic steatohepatitis (NASH); M81.0 Age-related osteoporosis without current pathological fracture; R79.89 Other specified abnormal findings of blood chemistry; F41.1 Generalized anxiety disorder